=== PATIENT | female | born 1960 | race Caucasian/White ===

== ENCOUNTER 2018-01-29 13:11 | Emergency (ER) | payer BC ==
[2018-01-29 13:17] VITALS: BMI 47.4
--- NOTE | 2018-01-29 13:46 | PDOC ---
History of Present Illness - General Chief Complaint: Injury Stated Complaint: INJURY Time Seen by Provider: 01/29/18 13:46 History Source: Patient Exam Limitations: No Limitations - History of Present Illness Initial Comments: 01/29/18 14:30 Patient is a 57-year-old female who presents to the emergency department complaining of left ankle pain. Patient states she was walking outside when she missed a step. Denies hitting her head or LOC. She inverted her left ankle. Patient states that she has prior sprained ankle. Denies numbness and tingling to the extremity, weakness, recent illness. Past History - Travel Traveled outside of the country in the last 30 days: No Close contact w/someone who was outside of country & ill: No - Past Medical History Allergies/Adverse Reactions: Allergies Allergy/AdvReac Type Severity Reaction Status Date / Time No Known Allergies Allergy Verified 01/29/18 13:13 Home Medications: Ambulatory Orders Bupropion HCl [Bupropion HCl Sr] 150 mg PO DAILY 01/29/18 Calcium Carbonate [Calcium] 1,200 mg PO DAILY 01/29/18 Cholecalciferol (Vitamin D3) [Vitamin D3 -] 5,000 unit PO DAILY 01/29/18 Levocetirizine Dihydrochloride [Xyzal] 5 mg PO DAILY 01/29/18 Ranitidine [Zantac -] 150 mg PO DAILY 01/29/18 COPD: No Other medical history: DENIES. - Surgical History Cholecystectomy: Yes - Suicide/Smoking/Psychosocial Hx Smoking History: Never smoked Have you smoked in the past 12 months: No Information on smoking cessation initiated: No Review of Systems - Review of Systems Able to Perform ROS?: Yes Comments:: 01/29/18 18:32 CONSTITUTIONAL: Absent: fever, chills, diaphoresis, generalized weakness, malaise, loss of appetite MUSCULOSKELETAL: Present: L ankle pain and swelling. Absent: myalgia, arthralgia, joint swelling SKIN: Absent: rash, itching, pallor NEUROLOGIC: Absent: headache, focal weakness or paresthesias, dizziness, unsteady gait, seizure, mental status changes, bladder or bowel incontinence PSYCHIATRIC: Absent: anxiety, depression, suicidal or homicidal ideation, hallucinations. Is the patient limited Togolese proficient: No *Physical Exam - Vital Signs Last Vital Signs Temp Pulse Resp BP Pulse Ox 98.5 F 78 22 147/79 98 01/29/18 13:13 01/29/18 13:13 01/29/18 13:13 01/29/18 13:13 01/29/18 13:13 - Physical Exam Comments: 01/29/18 18:33 GENERAL: The patient is awake, alert, and fully oriented, in no acute distress. HEAD: Normal with no signs of trauma. EYES: Pupils equal, round and reactive to light, extraocular movements intact, sclera anicteric, conjunctiva clear. EXTREMITIES: L ankle swollen anteriorly. TTP of both lateral and medial malleolus. Limited ROM with inversion and eversion d/t pain. Neurovascuarlly intact. DP pulse 2+. Normal range of motion at all other joints. NEUROLOGICAL:Normal speech, normal gait. PSYCH: Normal mood, normal affect. SKIN: Warm, Dry, normal turgor, no rashes or lesions noted. Medical Decision Making - Medical Decision Making 01/29/18 15:42 Patient is a 57-year-old female who presents emergency Department with left ankle pain status post trip and fall. X-rays negative for fractures at this time. Shows old chronic changes and arthritis. Will place in Aircast, Joel wrap and shoe boot at this time for support. Patient told to follow-up with ortho at home. She is from [place]. Return precautions given. Patient understand all discharge instructions and all questions were answered. *DC/Admit/Observation/Transfer Diagnosis at time of Disposition: Left ankle sprain Qualifiers: Encounter type: initial encounter Involved ligament of ankle: unspecified ligament Qualified Code(s): S93.402A - Sprain of unspecified ligament of left ankle, initial encounter - Discharge Dispostion Disposition: HOME Condition at time of disposition: Stable Decision to Admit order: No - Referrals - Patient Instructions Printed Discharge Instructions: DI for Ankle Sprain Additional Instructions: You sprained your ankle. Your x-ray was negative for broken bones. Please keep your ankle elevated while at rest above the level of your heart to reduce swelling. You may take Motrin 800 mg every 8 hours to help reduce pain and swelling ,not to exceed 3,000mg a day Please ice the area for 20 minute intervals at least 5 times a day to help reduce swelling. Please wear the Joel wrap. Please follow-up with orthopedics in 1 week if your symptoms are not improving. Return to the emergency department if you have worsening pain, or unable to walk , numbness and tingling of the foot, or had any changes in her symptoms. [facility] - Post Discharge Activity Forms/Work/School Notes: Back to Work
[2018-01-29] MEDS ORDERED: IBUPROFEN 400 MG TABLET (FP) PO ONE ×2 (14:07→14:09)
[2018-01-29 16:16] VITALS: BP 139/77; PULSE 83; TEMP 98
== END 2018-01-29 16:15 | disposition home or self-care (01) ==
LOC: JERFT 13:11 → JER 13:11
PROC: 2W3RX1Z Immobilization of Left Lower Leg using Splint (ICD-10-PCS; principal; 2018-01-29)
DX: S93.492A Sprain of other ligament of left ankle, initial encounter (principal); W01.0XXA Fall on same level from slipping, tripping and stumbling without subsequent striking against object, initial encounter; Y93.01 Activity, walking, marching and hiking; Y92.89 Other specified places as the place of occurrence of the external cause; Y99.8 Other external cause status
CPT/HCPCS: 73610-TC-LT-FY; 73630-TC-LT; 99283-25